=== PATIENT | male | born 1985 | race Caucasian/White ===

== ENCOUNTER 2019-09-29 02:28 | Emergency (ER) | payer OTHER ==
[2019-09-29 02:33] VITALS: BP 147/90; PULSE 87; TEMP 98.1; BMI 23.6
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
[2019-09-29] MEDS ORDERED: DIPHTH,PERTUSS(ACELL),TET 0.5 ML DISP.SYRIN IM ONE ×3 (02:45→03:22)
[2019-09-29] MEDS ORDERED: ACETAMINOPHEN 325 MG TABLET (FP) PO ONE (02:46)
[2019-09-29] MEDS ORDERED: ACETAMINOPHEN 325 MG TABLET (FP) ONE (03:27)
[2019-09-29] MEDS ORDERED: BACITRACIN 15 GM TUBE TOPICAL OINTMENT TP ONE (04:17)
[2019-09-29] MEDS ORDERED: BACITRACIN 15 GM TUBE TOPICAL OINTMENT ONE (04:34)
== END 2019-09-29 04:36 | disposition home or self-care (01) ==
LOC: JER 02:28
PROC: 0HQ0XZZ Repair Scalp Skin, External Approach (ICD-10-PCS; principal; 2019-09-29)
PROC: 3E0234Z Introduction of Serum, Toxoid and Vaccine into Muscle, Percutaneous Approach (ICD-10-PCS; 2019-09-29)
DX: S01.01XA Laceration without foreign body of scalp, initial encounter (principal); Y00.XXXA Assault by blunt object, initial encounter; Y93.89 Activity, other specified; Y92.89 Other specified places as the place of occurrence of the external cause; Y99.8 Other external cause status; Y07.9 Unspecified perpetrator of maltreatment and neglect
CPT/HCPCS: 70450-TC; 90715; 99282-25

== ENCOUNTER 2019-10-07 13:46 | Emergency (ER) | payer OTHER ==
[2019-10-07 13:51] VITALS: BP 136/79; PULSE 69; TEMP 98; BMI 28.0
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
== END 2019-10-07 14:19 | disposition home or self-care (01) ==
LOC: JERFT 13:46
DX: Z48.817 Encounter for surgical aftercare following surgery on the skin and subcutaneous tissue (principal); Z48.02 Encounter for removal of sutures
CPT/HCPCS: 99282-25